=== PATIENT | female | born 1950 | race Hispanic/Latino ===

== ENCOUNTER 2020-06-27 12:15 | Emergency (ER) | payer MEDICARE, OTHER ==
[~2020-06-27 12:15] MED LIST: ASPI-1197 PO; ATOR20TA65 PO; BUSP5TAB3 PO; CARV3.12 PO; DOXE25CA3 PO; INDA2.5T5 PO; LISI2.5T2 PO; MECL-160 PO; POTA20TA12 PO
[2020-06-27 15:24] LABS: BASOPHILS % (AUTO) 0.3 % (0.0-5.0); EOSINOPHILS % (AUTO) 0.3 % (0.0-8.0); HEMATOCRIT 44.9 % (36-48); LYMPHOCYTES % (AUTO) 22.6 % (21.0-51.0); MEAN CORPUSCULAR HEMOGLOBIN 28.9 pg (27.0-33.0); MEAN CORPUSCULAR HGB CONC 34.5 g/dL (32.0-36.0); MEAN CORPUSCULAR VOLUME 83.8 fL (79-99); MONOCYTES % (AUTO) 3.8 % (3.0-13.0); NEUTROPHILS % (AUTO) 72.6 % (40.0-77.0); PLATELET COUNT (AUTO) 222 K/uL (130-400); RED BLOOD CELL COUNT(AUTO) 5.36 MIL/uL (4.00-5.50); RED CELL DISTRIBUTION WIDTH 12.7 % (11.0-15.5); WHITE BLOOD COUNT (AUTO) 9.9 K/uL (4.8-10.8)
[2020-06-27 15:38] LABS: INR 1.02 (0.85-1.15); PROTHROMBIN TIME 10.9 SEC (9.6-11.6)
[2020-06-27 15:41] LABS: CREATININE 0.9 mg/dL (0.5-1.5); POTASSIUM 3.2 mmol/L (3.5-5.1)
[2020-06-27 15:47] LABS: ALBUMIN 3.3 g/dL (3.5-5.0); BILIRUBIN,TOTAL 0.9 mg/dL (0.2-1.0); TOTAL PROTEIN, SERUM 7.2 g/dL (6.0-8.3)
[2020-06-27 16:14] LABS: RAPID GROUP A STREP NEGATIVE (NEGATIVE)
[2020-06-27 16:38] LABS: APPEARANCE,URINE Clear (CLEAR); BILIRUBIN,URINE Negative (NEGATIVE); COLOR,URINE Yellow (YELLOW); GLUCOSE, URINE (UA) Negative (NEGATIVE); KETONES,URINE Negative (NEGATIVE); LEUKOCYTE ESTERASE ,URINE Small (NEGATIVE); NITRATE,URINE Positive (NEGATIVE); OCCULT BLOOD,URINE Nonhemolyzed Trace (NEGATIVE); PH,URINE 6.5 (5.0-8.0); PROTEIN,URINE Negative (NEGATIVE)
[2020-06-27 16:56] LABS: RBC,URINE 0-1 /HPF (0-1)
[2020-06-27 16:57] LABS: BACTERIA,URINE Moderate /HPF (None Seen); SQUAMOUS EPITHELIAL CELL,UR Few /HPF (0-2)
[2020-06-27 16:58] LABS: MUCUS,URINE Rare LPF (None Seen)
[2020-06-27] MEDS ORDERED: IOHEXOL-350 75 ML VIAL IV ONE (18:14)
[2020-06-27] MEDS ORDERED: METOCLOPRAMIDE 10 MG/2 ML VIAL ONE (18:25)
[2020-06-27] MEDS ORDERED: POTASSIUM CHLORIDE 20 MEQ ERTAB PO ONE (18:25)
[2020-06-27] MEDS ORDERED: DEXAMETHASONE SOD PHOSPHATE 4 MG/ML 1ML VIAL ONE (18:25)
[2020-06-27] MEDS ORDERED: KETOROLAC TROMETHAMINE 15MG/ML ONE (18:26)
== END 2020-06-27 20:51 | disposition home or self-care (01) ==
LOC: EDH 12:15
DX: R51.9 Headache, unspecified (principal); I10 Essential (primary) hypertension; E11.9 Type 2 diabetes mellitus without complications; E78.5 Hyperlipidemia, unspecified; F41.9 Anxiety disorder, unspecified; F32.9 Major depressive disorder, single episode, unspecified; Z86.73 Personal history of transient ischemic attack (TIA), and cerebral infarction without residual deficits; Z90.49 Acquired absence of other specified parts of digestive tract
CPT/HCPCS: 36415; 70450; 70496; 70498; 80053; 81001; 82550; 83880; 84484; 85025; 85610; 85730; 87077; 87088; 87186; 87804 ×2; 87880; 93005; 96374; 96375; 99285; J1100; J1885; J2765; Q9967

== ENCOUNTER 2020-09-04 20:29 | Emergency (ER) | payer OTHER ==
[~2020-09-04 20:29] MED LIST changes: +LISI2.5T13 PO; -LISI2.5T2 PO; +POTA-193 PO; -POTA20TA12 PO
[2020-09-04] MEDS ORDERED: MECLIZINE HCL 25 MG TABLET ONE (20:52)
[2020-09-04 20:56] LABS: APPEARANCE,URINE Clear (CLEAR); BILIRUBIN,URINE Negative (NEGATIVE); COLOR,URINE Yellow (YELLOW); GLUCOSE, URINE (UA) Negative (NEGATIVE); KETONES,URINE Negative (NEGATIVE); LEUKOCYTE ESTERASE ,URINE Moderate (NEGATIVE); NITRATE,URINE Negative (NEGATIVE); OCCULT BLOOD,URINE Nonhemolyzed Trace (NEGATIVE); PROTEIN,URINE Negative (NEGATIVE)
[2020-09-04 21:03] LABS: BASOPHILS % (AUTO) 0.5 % (0.0-5.0); EOSINOPHILS % (AUTO) 2.7 % (0.0-8.0); HEMATOCRIT 41.1 % (36-48); LYMPHOCYTES % (AUTO) 35.2 % (21.0-51.0); MEAN CORPUSCULAR HEMOGLOBIN 28.8 pg (27.0-33.0); MEAN CORPUSCULAR HGB CONC 34.1 g/dL (32.0-36.0); MEAN CORPUSCULAR VOLUME 84.6 fL (79-99); MONOCYTES % (AUTO) 5.6 % (3.0-13.0); NEUTROPHILS % (AUTO) 55.7 % (40.0-77.0); PLATELET COUNT (AUTO) 202 K/uL (130-400); RED BLOOD CELL COUNT(AUTO) 4.86 MIL/uL (4.00-5.50); RED CELL DISTRIBUTION WIDTH 12.7 % (11.0-15.5); WHITE BLOOD COUNT (AUTO) 5.9 K/uL (4.8-10.8)
[2020-09-04 21:13] LABS: CREATININE 0.9 mg/dL (0.5-1.5); POTASSIUM 3.8 mmol/L (3.5-5.1)
[2020-09-04 21:17] LABS: ALBUMIN 3.2 g/dL (3.5-5.0); BILIRUBIN,TOTAL 0.6 mg/dL (0.2-1.0); TOTAL PROTEIN, SERUM 6.6 g/dL (6.0-8.3)
[2020-09-04 21:23] LABS: BACTERIA,URINE Moderate /HPF (None Seen)
[2020-09-04 21:24] LABS: MUCUS,URINE Few LPF (None Seen); SQUAMOUS EPITHELIAL CELL,UR Many /HPF (0-2)
== END 2020-09-04 22:23 | disposition home or self-care (01) ==
LOC: EDH 20:29
DX: H81.13 Benign paroxysmal vertigo, bilateral (principal); F41.9 Anxiety disorder, unspecified; F32.9 Major depressive disorder, single episode, unspecified; E11.9 Type 2 diabetes mellitus without complications; I10 Essential (primary) hypertension; E78.5 Hyperlipidemia, unspecified; Z90.49 Acquired absence of other specified parts of digestive tract
CPT/HCPCS: 36415; 70450; 80053; 81001; 85025; 87077; 87088; 87186; 93005

== ENCOUNTER 2025-04-27 19:07 | Emergency (ER) | payer OTHER ==
[~2025-04-27] VITALS: Ht 157.5 cm; Wt 88.0 kg
[~2025-04-27 19:07] MED LIST changes: -MECL-160 PO; +MECL-302 PO
[2025-04-27] MEDS: HYDROcodone/APAP 5/325 1 TAB TABLET PO ONE (19:45)
[2025-04-27] MEDS: LIDOCAINE 4% ADH..PATCH TP ONE (19:45)
--- NOTE | 2025-04-27 19:48 | ERN ---
General Chief Complaint: Shoulder Injury/Pain Stated Complaint: C/O PAIN TO LEFT SHOULDER X 3 DAYS Time Seen by MD: 19:13 History of Present Illness Initial Comments 74-year-old female history of high cholesterol hypertension presents for atraumatic left trapezius pain. Patient reports musculoskeletal type pain mostly in the trapezius area. He reports it increases with movement and palpation. No pain to the clavicle cervical spine your shoulder joint. There was no skin texture changes. She tried some Tylenol at home but she reports pain still 10/10. She is very tender on palpation. Pain is in the trapezius muscle in the left side above the scapula. Full range of motion. Neurovascularly intact. No chest pain. No other systemic illness. Allergies: Coded Allergies: No Known Drug Allergies (Verified Allergy, Unknown, 01/19/16) Home Meds Reported Medications Potassium Chloride (Klor-Con M20) 20 Meq Tab.er.prt, 20 MEQ PO DAILY 01/19/16 Meclizine HCl (Meclizine HCl) 25 Mg Tablet, 25 MG PO QID PRN for DIZZINESS, TAB 01/19/16 Doxepin HCl (Doxepin HCl) 25 Mg Capsule, 25 MG PO HS, CAP 01/19/16 Aspirin (Aspirin) 81 Mg Tab.chew, 81 MG PO DAILY, TAB.CHEW 01/19/16 Lisinopril (Lisinopril) 2.5 Mg Tablet, 2.5 MG PO DAILY, TAB 01/19/16 Buspirone HCl (Buspirone HCl) 5 Mg Tablet, 5 MG PO AD PRN for ANXIETY, TAB 01/19/16 Carvedilol (Carvedilol) 3.125 Mg Tablet, 3.125 MG PO BID, TAB 01/19/16 Indapamide (Indapamide) 2.5 Mg Tablet, 2.5 MG PO DAILY, TAB 01/19/16 Atorvastatin Calcium (Atorvastatin Calcium) 20 Mg Tablet, 20 MG PO HS, TAB 01/19/16 Past Medical History Past Medical History: Diabetes-Type II, Hypertension Past Surgical History: Unknown ROS Dictation CONSTITUTIONAL: No chills, no fever, no weakness, no diaphoresis, no malaise. HEAD/FACE: No signs of trauma. EENT: No eye pain, no blurred vision, no tearing, no double vision, no ear pain, no ear discharge, no nose pain, no nasal congestion, no throat pain, no throat swelling, no mouth pain. RESPIRATORY: No cough, no orthopnea, no SOB, no stridor, no wheezing. CARDIOVASCULAR: No chest pain, no edema, no palpitations, no syncope. GASTROINTESTINAL/ABDOMINAL: No abdominal pain, no constipation, no diarrhea, no nausea, no vomiting. GENITOURINARY: No abnormal discharge, no dysuria, no frequent urination, no hematuria. No complaints of pain in the genitals. MUSCULOSKELETAL: Musculoskeletal type left trapezius pain INTEGUMENTARY: No change in color, no change in hair/nails, no dryness, no lesion, no lumps, no rash. NEUROLOGICAL/PSYCH: No anxiety, not depressed, no emotional problem, no headache, no numbness, no pre-existing deficit, no history of seizures, no tremors, no weakness. HEMATOLOGIC/LYMPHATIC: Not anemic, no history of blood clots, no apparent bleeding, no bruising, glands not swollen. All Systems Negative, Except as Noted. Physical Exam Physical Exam Dictation VITAL SIGNS: Reviewed. GENERAL APPEARANCE: Alert, oriented x3, no acute distress, obese. HEAD AND FACE: Non-traumatic. EYES: PERRL, pink conjunctivas, eyelid no trauma, anterior chamber clear. EARS: Pinnas intact and no signs of trauma or erythema. Ear canals clear and no discharge. TMs no erythema. NOSE: No discharge, no bleeding. OROPHARYNX: Mouth normal, teeth no caries, tongue pink. Pharynx clear, no erythema. Tonsils no exudates, no abscesses noted. Mucous membrane moist. NECK: Supple, non-tender, no thyromegaly, no masses, no JVD, no bruits. BREAST: Deferred. CHEST: No tenderness, no crepitus, no paradoxical movement, no retractions. LUNGS: Clear, well-ventilated, symmetric, no rales, no wheezing, no rhonchi, no stridor, good breath sounds bilaterally. HEART: Regular rate, regular rhythm, no murmur, no gallops. VASCULAR: No peripheral edema. ABDOMEN: Soft, positive bowel sounds, nondistended, no guarding, nontender, no rebound, no masses no hepatomegaly, no splenomegaly, no Underwood's sign, no hernias. RECTAL: Deferred. GENITAL: Deferred. NEUROLOGICAL: Normal speech, gross motor function intact, gross sensory function intact. MUSCULOSKELETAL: Tenderness left stretch queasiness, normal skin texture, full range of motion of the cervical spine and shoulder. EXTREMITIES: Nontender, full range of motion. SKIN: Color pink, dry, no turgor, no rash, no lacerations, no abrasions, no contusions. LYMPHATICS: Deferred. MDM CC: Atraumatic left trapezius pain Historian: Patient Comorbidities: Advanced age, cholesterol, hypertension Limitations by social determinants of health: None Differential diagnosis: MSK pain, septic joint, bony abnormality, arthritis, skin problem, other Vital signs stable Clinically patient has a musculoskeletal pain. No signs of reason joint pain or injury. Low suspicion for cardiac type pain. It has been musculoskeletal. Left shoulder X-rays show some mild arthritis in the shoulder otherwise unremarkable. Independently interpreted by me. Patient received IM Toradol, p.o. Mineral, and a lidocaine patch for pain. Plan will be to discharge with supportive care and recommend PCP follow up as needed. ED Course Orders Procedure Category Date Status Time Shoulder Comp 2+Vws Lt RAD 04/27/25 Taken 19:19 Ketorolac PHA 04/27/25 Complete Tromethamine 15mg/Ml 19:30 Acetaminophen 500mg PHA 04/27/25 Complete Tab (Tylenol 500mg T 19:30 Hydrocodone/Apap PHA 04/27/25 Complete 5/325 (Mineral 5/325mg) 19:30 Lidocaine (Lidocaine PHA 04/27/25 Complete Patch 4%) 19:30 Current Medications Medications (Trade) Dose Ordered Sig/Ashley Route PRN Reason Start Time Stop Time Status Last Admin Dose Admin Acetaminophen (TYLenol 500MG TAB) 500 mg ONCE ONCE PO 04/27/25 19:30 04/27/25 19:27 DC Acetaminophen/ Hydrocodone Bitart (NORco 5/325MG) 1 tab ONCE ONCE PO 04/27/25 19:30 04/27/25 19:31 DC 04/27/25 19:45 Ketorolac Tromethamine (toRADol) 15 mg ONCE ONCE IM 04/27/25 19:30 04/27/25 19:31 DC 04/27/25 19:45 Lidocaine (Lidocaine Patch 4%) 1 each ONCE ONCE TP 04/27/25 19:30 04/27/25 19:31 DC 04/27/25 19:45 Vital Signs Date Time Temp Pulse Resp B/P (MAP) Pulse Ox O2 Delivery O2 Flow Rate FiO2 04/27/25 19:32 98.8 77 18 156/82 97 Room Air* 0 21 04/27/25 19:09 98.4 77 20 182/88 97 Room Air DX & DISP Disposition: Discharge Departure Impression: Primary Impression: Trapezius strain Condition: Stable Scripts Lidocaine (Lidocaine Pain Relief) 4 % Adh..patch 1 EACH TP BID PRN for PAIN for 10 Days, #10 ADH.PATCH Prov: TAMIKA BRIDGES DO 04/27/25 Meloxicam (Meloxicam) 15 Mg Tablet 15 MG PO DAILY PRN for PAIN for 10 Days, #10 TAB Prov: TAMIKA BRIDGES DO 04/27/25 Additional Instructions: Your symptoms are most consistent with a trapezius possible sprain/strain. This will often heal on its own with supportive care. The x-rays show some mild arthritis in her shoulder joint, but are otherwise unremarkable. Take 1000 mg of Tylenol up to 4 times a day as needed. This medication is [id number]. I have prescribed meloxicam, which is a nonsteroidal anti-inflammatory pain medication. Take this once per day until your symptoms improve. I recommend massaging the area and gentle stretches to the area frequently. Apply ice for at least 20 minutes 3 times a day for the next 72 hours. After that use heat for comfort. I have prescribed lidocaine patches. You can apply this once or twice per day for comfort. I recommend that you follow up with the primary doctor in 3-5 days if you continue with symptoms. Return to the emergency department as needed. Referrals: HESHAM HER MD (PCP) TAMIKA BRIDGES DO Apr 27, 2025 19:48
[2025-04-27] MEDS ORDERED: LIDO1ADH71 TP (20:01)
[2025-04-27] MEDS ORDERED: MELO-108 PO (20:01)
--- NOTE | 2025-04-27 20:24 | HMCIMG ---
EXAM: CR left Shoulder, 4 View. CLINICAL HISTORY: atraumatic pain COMPARISON: None provided. FINDINGS: BONES: No acute fracture or aggressive appearing osseous lesion. JOINTS: No dislocation. The joint spaces are normal. SOFT TISSUES: The soft tissues are unremarkable. IMPRESSION: No acute abnormality evident on examination of the right shoulder. No acute fracture or dislocation. /Stevinson
[2025-04-27 20:54] VITALS: BP 148/75; PULSE 68; RESP 18; TEMP 98.7; O2SAT 97
== END 2025-04-27 20:54 | disposition home or self-care (01) ==
LOC: EDH 19:07
DX: S29.012A Strain of muscle and tendon of back wall of thorax, initial encounter (principal); E11.9 Type 2 diabetes mellitus without complications; I10 Essential (primary) hypertension; E78.00 Pure hypercholesterolemia, unspecified; Z79.82 Long term (current) use of aspirin; Z79.899 Other long term (current) drug therapy; X58.XXXA Exposure to other specified factors, initial encounter; Y93.89 Activity, other specified; Y92.89 Other specified places as the place of occurrence of the external cause; Y99.8 Other external cause status
CPT/HCPCS: 99283; 73030; 96372; J1885